=== PATIENT | female | born 1970 | race Caucasian/White ===

== ENCOUNTER 2020-06-19 10:38 | Emergency (ER) | payer OTHER, SELFPAY ==
[2020-06-19 10:49] VITALS: BP 202/126; PULSE 81; RESP 23; TEMP 36.8; O2SAT 100
[2020-06-19] MEDS: KETOROLAC 30 MG/ML VIAL (*BKC) IV PUSH (11:09)
[2020-06-19] MEDS: SODIUM CHLORIDE 0.9% IV 1,000 ML 999 ML IV CONT (11:09)
[2020-06-19 11:14] VITALS: BP 178/96; PULSE 69; RESP 16; O2SAT 96
[2020-06-19 11:16] LABS: Basophils Absolute Auto 0.1 K/mm3 (0.0-0.1); Basophils Percent Auto 1.3 % (0.2-1.2); Eosinophils Absolute Auto 0.2 K/mm3 (0-0.3); Eosinophils Percent Auto 3.4 % (0-4.4); Hematocrit 40.4 % (37.0-47.0); Hemoglobin 13.7 g/dL (12.0-15.0); Immature Granulocyte Absolute 0.02 K/mm3 (0.00-0.031); Immature Granulocyte Percent A 0.3 % (0-0.5); Lymphocytes Absolute Auto 1.68 K/mm3 (0.9-3.2); Lymphocytes Percent Auto 26.3 % (18.3-44.2); Mean Corpuscular HGB Conc 33.9 g/dl (32-36); Mean Corpuscular Hemoglobin 30.7 pg (26-34); Mean Corpuscular Volume 90.6 fl (80-100); Mean Platelet Volume 9.8 fl (7.4-10.4); Monocytes Absolute Auto 0.6 K/mm3 (0.1-0.6); Monocytes Percent Auto 8.6 % (2.6-8.5); Neutrophils Absolute Auto 3.8 K/mm3 (1.3-6.7); Neutrophils Percent Auto 60.1 % (45.5-73.1); Platelet Count Result 202 k/mm3 (150-375); Red Blood Count 4.46 M/mm3 (4.2-5.4); Red Cell Distribution Width 11.8 % (11.5-14.5); White Blood Count 6.4 K/mm3 (4.5-10.0)
--- NOTE | 2020-06-19 11:17 | ED.GENADULT ---
HPI - General Adult General Chief complaint: Recheck/Abnormal Lab/Rx Stated complaint: high blood pressure Time Seen by Provider: 06/19/20 10:44 Source: patient and family Mode of arrival: ambulatory Limitations: no limitations History of Present Illness HPI narrative: Patient is a 49-year-old female who presents to emergency department for evaluation of headache dizziness and hypertension patient had a head injury 2 weeks ago was evaluated had CAT scan has been having headaches since described as frontal in nature with some dizziness associated with it and nausea patient does suffer from chronic migraines as well and is also had daily headaches for years. Patient denies any vomiting new injury or trauma. Patient on arrival does not appear uncomfortable. Patient notes she has been compliant with her hypertension and migraine medication Related Data Home Medications Medication Instructions Recorded Confirmed famotidine 06/19/20 losartan 06/19/20 meclizine mg 06/19/20 nebivolol [Bystolic] mg 06/19/20 oxycodone 06/19/20 06/19/20 Allergies Allergy/AdvReac Type Severity Reaction Status Date / Time ciprofloxacin Allergy Unknown Verified 07/28/16 13:45 hydrocodone Allergy Unknown Verified 07/28/16 13:45 morphine Allergy Unknown Verified 07/28/16 13:45 prochlorperazine Allergy Unknown Verified 07/28/16 13:45 UNKNOWN OTHER MEDICATIONS Allergy Unknown Uncoded 07/28/16 13:45 Review of Systems Review of Systems: All systems reviewed & are unremarkable except as noted in HPI and below PMFSH Past Medical History Medical History (Updated 06/19/20 @ 14:21 by Maxim Casey PA-C) Hypertension Migraine Social History Social History (Updated 06/19/20 @ 11:19 by Maxim Casey PA-C) Smoking status: Never smoker Exam Narrative: Exam Narrative: GENERAL: Well-appearing, well-nourished, and in no acute distress. HEAD: Normocephalic, atraumatic. EYES: PERRLA and EOMI. ENT: Nares clear, no rhinorrhea or epistaxis. Mucous membranes moist. CHEST: Clear to auscultation. No respiratory distress. No wheezes rales or rhonchi HEART: Regular rate and rhythm. No murmur heard. EXTREMITIES: Normal range of motion. No edema. SKIN: Warm, dry, no rash. NEURO: No focal deficits. Alert and oriented x3. Cranial nerves II through XII grossly intact. Normal speech PSYCH: Normal mood and affect. Course Course Emergency Course: Patient in the room at this time no distress is been given multiple medications for headache and blood pressure patient's pressure currently 165/108 patient has chronic daily migraines and will be difficult to treat with her concussion obviously causing increasing headache advised to follow with her specialist for further evaluation and recommendations patient with ABCs intact and stable spelt appropriate for outpatient reevaluation Vital Signs Vital signs: Vital Signs Temperature 98.2 F 06/19/20 10:49 Pulse Rate 81 06/19/20 10:49 Respiratory Rate 23 H 06/19/20 10:49 Blood Pressure 202/126 H 06/19/20 10:49 Pulse Oximetry 100 06/19/20 10:49 Temperature 98.2 F 06/19/20 10:49 Pulse Rate 97 06/19/20 14:02 Respiratory Rate 16 06/19/20 14:02 Blood Pressure 166/103 H 06/19/20 14:02 Pulse Oximetry 100 06/19/20 14:02 Medical Decision Making MDM Narrative Medical decision making narrative: Patients headache was not sudden or maximal in onset. There are o focal neurological deficits on exam. Subarachnoid hemorrhage is felt to be unlikey at this time. There is no history of fever, and neck is supple without meningismus, making meningitis unlikely. No traumatic history or signs of trauma on exam. No risk factors for CVA, risk factors reviewed. NO ocular signs on exam and in history to suggest acute glaucoma. Patients headache is felt to be a reasonable candidate for outpatient evaluation Vital Signs Vital Signs: Vital Signs Temperature 98.2 F 06/19/20 10:49 Pulse Ra
[2020-06-19 12:01] LABS: Anion Gap 6 mmol/L (8-16); Blood Urea Nitrogen 16 mg/dL (7-17); Calcium 8.9 mg/dL (8.4-10.2); Carbon Dioxide 28 mmol/L (22-30); Chloride 107 mmol/L (98-107); Estimated CRCL calculation 101 ml/min; Estimated Glomerular Filt Rate > 60; Glucose 101 mg/dL (65-105); Potassium 4.1 mmol/L (3.4-5.0); Sodium 141 mmol/L (137-145)
[2020-06-19 12:04] LABS: Add Urine Microscopic? NO; Appearance Urine Clear (Clear); Bilirubin Urine Negative (Negative); Blood Urine Negative (Negative); Color Urine Yellow (Yellow); Glucose Urine UA Negative (Negative); Ketones Urine Negative (Negative); Leukocyte Esterase Ur Negative LEU/UL (Negative); Nitrate Urine Negative (Negative); Protein Urine Negative (Negative); Specific Grav Ur 1.015 (1.001-1.035); Urobilinogen Urine Negative mg/dL (<2.0)
[2020-06-19] MEDS: ONDANSETRON INJ 4 MG/2 ML VIAL IV PUSH (12:15)
[2020-06-19] MEDS: MECLIZINE HCL 25 MG TABLET PO (12:16)
[2020-06-19] MEDS: LORazepam INJ (*CRX) 2 MG/ML VIAL 1 MG IV PUSH (12:39)
[2020-06-19] MEDS: hydrALAZINE HCL 20 MG/ML VIAL 10 MG IV PUSH ×2 (12:39→13:36)
[2020-06-19 12:43] VITALS: BP 207/106; PULSE 79; RESP 16; O2SAT 100
[2020-06-19 13:04] VITALS: BP 169/110; PULSE 78; RESP 16; O2SAT 100
[2020-06-19] MEDS: METOCLOPRAMIDE HCL INJ 10 MG/2 ML VIAL IV PUSH (13:39)
[2020-06-19] MEDS: diphenhydrAMINE HCl INJ 50 MG/ML VIAL 25 MG IV PUSH (13:39)
[2020-06-19 14:02] VITALS: BP 166/103; PULSE 97; RESP 16; O2SAT 100
[2020-06-19 14:25] VITALS: BP 167/92; PULSE 92; RESP 16; O2SAT 100
== END 2020-06-19 14:31 | disposition home or self-care (01) ==
PROVIDERS: Emergency Medicine Emergency Medical Services; Emergency Provider Emergency Medicine; PCP Family Medicine
DX: R51.9 Headache, unspecified (principal); I10 Essential (primary) hypertension
CPT/HCPCS: 36415; 80048; 81003; 85025; 96361; 96374; 96375; 96376; 99284; A9270; J0360; J1200; J1885; J2060; J2405; J2765; J7030

== ENCOUNTER → 2021-04-16 02:41 | Outpatient (CLI) | payer OTHER, SELFPAY ==
[2021-04-16 18:24] LABS: SARS-CoV-2 RNA PCR Negative
== END ==
PROVIDERS: PCP Family Medicine; Visit Provider Family Medicine
DX: R50.9 Fever, unspecified (principal); Z20.822 Contact with and (suspected) exposure to COVID-19
CPT/HCPCS: C9803; U0003; U0005